=== PATIENT | male | born 1980 | race Two or more races ===

== ENCOUNTER 2019-03-12 19:49 | Emergency (ER) | payer BC ==
--- NOTE | 2019-03-12 21:25 | EDM.PDOC ---
<Thiago Alcazar - Last Filed: 03/12/19 23:33> ED HPI GENERAL MEDICAL PROBLEM - General Chief Complaint: Respiratory Problem Stated Complaint: FLU Time Seen by Provider: 03/12/19 20:15 - Related Data Allergies Allergy/AdvReac Type Severity Reaction Status Date / Time No Known Allergies Allergy Verified 03/12/19 20:25 Home Meds: Home Meds Albuterol Sulfate [Proair Hfa] 8.5 gm IH Q8HR PRN #1 [email or web address].[email or web address].[email or web address] 03/12/19 [Rx] Course - Vital Signs Last Recorded V/S: Last Vital Signs Temp 98.4 F 03/12/19 23:35 Pulse 90 03/12/19 23:35 Resp 18 03/12/19 23:35 BP 130/26 L 03/12/19 23:35 Pulse Ox 98 03/12/19 23:35 - Orders/Labs/Meds Labs: Laboratory Tests 03/12/19 03/12/19 Range/Units 21:50 21:50 WBC 7.15 (4.0-11.0) K/uL RBC 5.05 (4.50-5.90) M/uL Hgb 15.0 (13.0-17.0) g/dL Hct 44.8 (38.0-50.0) % MCV 88.7 (80.0-98.0) fL MCH 29.7 (27.0-32.0) pg MCHC 33.5 (31.0-37.0) g/dL RDW Std Deviation 41.3 (28.0-62.0) fl RDW Coeff of Patti 13 (11.0-15.0) % Plt Count 159 (150-400) K/uL MPV 10.10 (7.40-12.00) fL Neut % (Auto) 67.3 (48.0-80.0) % Lymph % (Auto) 18.2 (16.0-40.0) % Berrien % (Auto) 13.0 (0.0-15.0) % Eos % (Auto) 1.4 (0.0-7.0) % Baso % (Auto) 0.1 (0.0-1.5) % Neut # (Auto) 4.8 (1.4-5.7) K/uL Lymph # (Auto) 1.3 (0.6-2.4) K/uL Berrien # (Auto) 0.9 H (0.0-0.8) K/uL Eos # (Auto) 0.1 (0.0-0.7) K/uL Baso # (Auto) 0.0 (0.0-0.1) K/uL Nucleated RBC % 0.0 /100WBC Nucleated RBCs # 0 K/uL Sodium 138 (136-148) mmol/L Potassium 4.2 (3.5-5.1) mmol/L Chloride 101 (98-107) mmol/L Carbon Dioxide 28.6 (21.0-32.0) mmol/L BUN 15 (7.0-18.0) mg/dL Creatinine 1.1 (0.8-1.3) mg/dL Est Cr Clr Drug Dosing 95.86 mL/min Estimated GFR (MDRD) > 60.0 ml/min Glucose 94 (74-106) mg/dL Calcium 9.0 (8.5-10.1) mg/dL Total Bilirubin 0.2 (0.2-1.0) mg/dL AST 66 H (15-37) IU/L ALT 91 H (14-63) IU/L Alkaline Phosphatase 49 (46-116) U/L Total Protein 7.7 (6.4-8.2) g/dL Albumin 3.7 (3.4-5.0) g/dL Globulin 4.0 (2.6-4.0) g/dL Albumin/Globulin Ratio 0.9 (0.9-1.6) - Re-Assessments/Exams Free Text/Narrative Re-Assessment/Exam: 03/12/19 23:33 Emergency Medicine Physician Handoff Note Verbal report from MEGHNA Johns at 9:00 PM, 05/09/2019. Summary: 38-year-old male presents with cough and wheezing of one week duration. Vitals and completed studies were jointly reviewed, these are notable for: * HR 104, RR 18, BP 130/73, T 37.4C, SaO2 96% on room air. * WBC 7.15, HB 15.0. * CXR: no evidence of acute cardiopulmonary disease. Pending: CMP Anticipated disposition: discharge with Medrol Dosepak and inhaler. Evaluation: I independently reviewed the prior provider's chart, nursing and triage note(s) , vitals - and when available - labs, EKGs, and imaging studies. Sodium 138, potassium 4.2. Repeat evaluation approximately 11:20 PM with patient resting comfortably, repeat history notable for cough and sore throat times one week, otherwise consistent with that given above. Lungs clear to auscultation bilaterally with a normal work of breathing. Disposition: discharge with PCP follow-up recommended. Impression: cough. Departure - Departure Time of Disposition: 23:33 Disposition: Home, Self-Care 01 Clinical Impression: Tracheobronchitis, Transaminitis Upper respiratory infection Qualifiers: URI type: unspecified URI Qualified Code(s): J06.9 - Acute upper respiratory infection, unspecified - Discharge Information Prescriptions: Albuterol Sulfate [Proair Hfa] 8.5 gm IH Q8HR PRN #1 hfa.aer.ad PRN Reason: Cough Instructions: Acute Bronchitis, Adult, Viky-zf-Dpab, Upper Respiratory Infection, Adult, [id number]-Cbbn Referrals: PCP,None [Primary Care Provider] - Forms: ED Department Discharge Additional Instructions: The following information is given to patients seen in the emergency department who are being discharged to home. This information is to outline your options for follow-up care. We provide all patients seen in our emergency department with a follow-up referral. The need for follow-up, as well as the timing and circumstances, are variable depending upon the specifics of your emergency department visit. If you don't have a primary care physician on staff, we will provide you with a referral. We always advise you to contact your personal physician following an emergency department visit to inform them of the circumstance of the visit and for follow-up with them and/or the need for any referrals to a consulting specialist. The emergency department will also refer you to a specialist when appropriate. This referral assures that you have the opportunity for follow-up care with a specialist. All of these measure are taken in an effort to provide you with optimal care, which includes your follow-up. Under all circumstances we always encourage you to contact your private physician who remains a resource for coordinating your care. When calling for follow-up care, please make the office aware that this follow-up is from your recent emergency room visit. If for any reason you are refused follow-up, please contact the [facility] Emergency Department at and asked to speak to the emergency department charge nurse. [facility] Primary Care [address] [place] [address] [facility] [address] [place] [address] 1. Take medication as prescribed. You can alternate ibuprofen and Tylenol as directed for pain and discomfort. 2. Follow-up with your primary care provider as discussed. Return to the ED as needed and as discussed. You were in seen in the [facility] Emergency Department for evaluation of a cough and wheezing. You may take the prescribed steroids and inhaler to reduce your symptoms. Please read and follow all of the instructions below. Please follow up with your primary care physician in 2 days for repeat evaluation. When calling for follow-up care, please make the office aware that this follow-up is from your recent emergency room visit. If for any reason you are refused follow-up, please contact the [facility] Emergency Department at and asked to speak to the emergency department charge nurse. Your care today was limited to identifying and treating emergent medical problems only. Many people have subtle differences in their test results that require follow up with their outpatient physician(s) to correctly determine if this represents a normal variation or concerning abnormality with respect to your specific health. The care given to you today was limited to identifying and treating emergent medical problems - you need to request a copy of all of your medical records from today's visit and follow up with your outpatient physician(s) to review both today's visit and your overall health. If you have any new symptoms or if you are at all concerned about your health please return immediately to the emergency department. Prescriptions: If you are uninsured or have financial difficulties with filling your prescription(s), you may consider using a free pharmacy discount service such as [employer] ([employer]) or [employer] (Is That Odd). These services allow you to search for a medication on your phone (or computer) and obtain a coupon that usually has a significant discount from the list holcomb at a pharmacy. Your physician as well as [facility] does not have a financial relationship with either of these services. You may also wish to speak with your physician to determine if lower cost prescriptions are possible. Obtaining primary care: 1. [facility] provides pediatrics (children), family medicine (children, adults, and some obstetrical care), and internal medicine (adults). Further specialty care is also available. Same day appointments are available. They may be contacted at [phone] and are open Friday through Friday 8 AM to 5 PM. The [facility] are located at [facility], [address] [place] [address]. 2. [facility] offers family medicine, internal medicine, women health, and further specialty care. [facility] may be contacted at [phone]. [facility] is located at [address] [facility] [address]. 3. If you have health insurance, please also contact your insurer for a list of accepting providers under your policy, you may contact these providers for further health care. Occupational health: Work related injuries may consider following up with [facility], . Occupational health services are located at [address] [place] [address] and are open Friday through Friday from 7: 30 am to 5:00 pm. Obstetrical and Gynecological Care: [facility], , Friday through Friday 8 AM to 5 PM. [address] [place] [address]. Eyecare: If you have an eye injury you should follow up with your rate clerk passenger or with [facility], at [phone] or [phone] , they are located at [address] [place] [address]. [facility]. [address] [place] [address]. Ph. [phone] Denadre Colón DDS MS. [address] [facility] [address], [place], [place]. Ph. [phone] Blaine Yogesh Mehta DDS. 10 03/[address] [place] [address]. Ph. [phone] Cristhian Gomez DDS. [address] [facility] [address] [place], [place]. Ph. [phone] [facility] Bobby [facility] PC. [address] [facility] [address] [place], [place]. Ph. [phone] Richar Connors DDS. [address] [facility]. Ph. [phone] [facility]. [address] [place], [place]. Ph. [phone] [facility]. [address] [place] [address], [place], [place]. Ph. [phone] [facility] [address] [place] [address]. Ph. [facility] [address] [place] [address] [address] [place], [place]. Ph. [facility]. [address] , [place], [place]. Ph. [phone] Cough Home Care Instructions You were seen in the emergency department today for evaluation of your cough. Based upon the evaluation today your cough does not appear to be caused by bacterial pneumonia, rather a virus is the cause of your cough. These types of infections cannot be treated by antibiotics, your body will fight this infection and clear the virus. Most people get better in 7-10 days. It is not uncommon to have a mild nonproductive cough last for up to several weeks following the resolution of your illness. If you continue have a cough beyond 7- 10 days please follow-up with your primary care physician. You may do the following treatments to reduce your symptoms: * Hefm-gix-wxlgeqb cough medications containing dextromethorphan may reduce the frequency and severity of your coughing. Please take as directed on the bottle. Please read all warnings on the bottle. Do not take this medication if you have any allergies to any of the ingredients listed on the bottle. * Ibuprofen may be used to reduce fever, pain, and inflammation. You may take 600 mg (three 200 mg ahwc-bct-ibclsdd tablets) every 6-8 hours. Please read the warnings below regarding ibuprofen. Do not take this medication if you are or allergic to ibuprofen, Motrin, Aleve, or naproxen. * Please stay well-hydrated and get adequate rest. * If you are a smoker please stop smoking. * Dsbf-dhp-fqwfcoq lozenges or tea with honey may be used for sore throat. Please return to the emergency department if any of the following occur: * Increasing fever. * Worsening cough or a cough that becomes productive of thick sputum. * A cough that temporarily gets better and then over the several days get significantly worse. This may occur if you developed a bacterial pneumonia following your viral infection. This rarely occurs and there is no prevention at this point in your infection. * Chest pain. * Shortness of breath or difficulty breathing. * If you are otherwise concerned about your health. Albuterol (Brand Name: Salbutamol) This drug is used to open the airways in lung diseases where spasm may cause breathing problems. Please use this medication as prescribed. Please call your doctor if you are needing to use if more frequently than prescribed. Use your inhaler with a spacer every time. This medication may make you feel jittery and have a faster heart rate. If you have diabetes, please check your blood glucose more frequently as it may be higher. ALBUTEROL WARNING/CAUTION: Even though it may be rare, some people may have very bad and sometimes deadly side effects when taking a drug. Tell your doctor or get medical help right away if you have any of the following signs or symptoms that may be related to a very bad side effect: Signs of an allergic reaction, like rash; hives; itching; red, swollen, blistered, or peeling skin with or without fever; wheezing; tightness in the chest or throat; trouble breathing or talking; unusual hoarseness; or swelling of the mouth, face, lips, tongue, or throat. Signs of low potassium levels like muscle pain or weakness, muscle cramps, or a heartbeat that does not feel normal. If you are not able to get the breathing attack under control. Get help right away. Chest pain or pressure or a fast heartbeat. Very nervous and excitable. Very bad headache. Very bad dizziness or passing out. This drug may sometimes cause very bad breathing problems. This may be life- threatening. When this happens with a puffer (inhaler) or with liquid for breathing in, most of the time it happens right after a dose and after the first use of a new canister or vial of this drug. If you have trouble breathing , breathing that is worse, wheezing, or coughing, get medical help right away. ALBUTEROL WARNING/CAUTION: Even though it may be rare, some people may have very bad and sometimes deadly side effects when taking a drug. Tell your doctor or get medical help right away if you have any of the following signs or symptoms that may be related to a very bad side effect: Signs of an allergic reaction, like rash; hives; itching; red, swollen, blistered, or peeling skin with or without fever; wheezing; tightness in the chest or throat; trouble breathing or talking; unusual hoarseness; or swelling of the mouth, face, lips, tongue, or throat. Signs of low potassium levels like muscle pain or weakness, muscle cramps, or a heartbeat that does not feel normal. If you are not able to get the breathing attack under control. Get help right away. Chest pain or pressure or a fast heartbeat. This drug may sometimes cause very bad breathing problems. This may be life- threatening. When this happens with a puffer (inhaler) or with liquid for breathing in, most of the time it happens right after a dose and after the first use of a new canister or vial of this drug. If you have trouble breathing , breathing that is worse, wheezing, or coughing, get medical help right away. Pain when passing urine. Trouble passing urine. A very bad skin reaction (Mcgill-Howard syndrome/toxic epidermal necrolysis) may happen. It can cause very bad health problems that may not go away, and sometimes . Get medical help right away if you have signs like red, swollen , blistered, or peeling skin (with or without fever); red or irritated eyes; or sores in your mouth, throat, nose, or eyes. Sepsis Event Note - Focused Exam Vital Signs: Vital Signs Temp Pulse Resp BP Pulse Ox 03/12/19 23:35 98.4 F 90 18 130/26 L 98 Date Exam was Performed: 03/12/19 Time Exam was Performed: 23:33 <Dodie Johns - Last Filed: 03/13/19 09:59> ED HPI GENERAL MEDICAL PROBLEM - General Source of Information: Reports: Patient History Limitations: Reports: No Limitations - History of Present Illness INITIAL COMMENTS - FREE TEXT/NARRATIVE: HISTORY AND PHYSICAL: History of present illness: Patient is a 38-year-old male who presents to the ED today with concern of cough and nasal congestion over the past 4 days. Patient states he initially had fevers with onset of symptoms but those have resolved. Patient states he does smoke 2 cigarettes a day and is working on quitting. Patient denies any other symptoms or concerns. Patient denies fever, chills, chest pain, shortness of breath. Denies headache, neck stiff ness, change in vision, syncope, or near syncope. Denies nausea, vomiting, abdominal pain, diarrhea, constipation, or dysuria. Has not noted any blood in urine or stool. Patient has been eating and drinking appropriately. Review of systems: As per history of present illness and below otherwise all systems reviewed and negative. Past medical history: As per history of present illness and as reviewed below otherwise noncontributory. Surgical history: As per history of present illness and as reviewed below otherwise noncontributory. Social history: See social history for further information Family history: As per history of present illness and as reviewed below otherwise noncontributory. Physical exam: General: Patient is alert, oriented, and in no acute distress. Patient sitting comfortably on exam table. HEENT: Atraumatic, normocephalic, pupils equal and reactive bilaterally, negative for conjunctival pallor or scleral icterus, mucous membranes moist, TMs normal bilaterally, throat clear, neck supple, nontender, trachea midline. No drooling or trismus noted. No meningeal signs. No hot potato voice noted. Bilateral nasal congestion with clear drainage. Lungs: Mild wheezing to auscultation of lung bases, breath sounds equal bilaterally, chest nontender. Heart: S1S2, regular rate and rhythm without overt murmur Abdomen: Soft, nondistended, nontender. Negative for masses or hepatosplenomegaly. Negative for costovertebral tenderness. Pelvis: Stable nontender. Genitourinary: Deferred. Rectal: Deferred. Skin: Intact, warm, dry. No lesions or rashes noted. Extremities: Atraumatic, negative for cords or calf pain. Neurovascular unremarkable. Neuro: Awake, alert, oriented. Cranial nerves II through XII unremarkable. Cerebellum unremarkable. Motor and sensory unremarkable throughout. Exam nonfocal. Notes: Discussed importance for follow-up with a primary care provider and for repeat labwork/additional follow up with labwork. Voices understanding and is agreeable to plan of care. Denies any further questions or concerns at this time. Diagnostics: CBC, CMP, CXR Therapeutics: None Prescription: Medrol Dosepak, pro-air inhaler Impression: Tracheobronchitis Upper respiratory infection Transaminitis Plan: 1. Take medication as prescribed. You can alternate ibuprofen and Tylenol as directed for pain and discomfort. 2. Follow-up with your primary care provider as discussed. Return to the ED as needed and as discussed. Definitive disposition and diagnosis as appropriate pending reevaluation and review of above. generalized Pain Score (Numeric/FACES): 4 Past Medical History - Past Health History Medical/Surgical History: Denies Medical/Surgical History Social & Family History - Family History Family Medical History: Noncontributory - Tobacco Use Smoking Status *Q: Current Every Day Smoker Years of Tobacco use: 10 Packs/Tins Daily: 0.5 - Recreational Drug Use Recreational Drug Use: No ED ROS GENERAL - Review of Systems Review Of Systems: Comprehensive ROS is negative, except as noted in HPI. ED EXAM, GENERAL - Physical Exam Exam: See Below (see dictation) Course - Orders/Labs/Meds Labs: Laboratory Tests 03/12/19 03/12/19 Range/Units 21:50 21:50 WBC 7.15 (4.0-11.0) K/uL RBC 5.05 (4.50-5.90) M/uL Hgb 15.0 (13.0-17.0) g/dL Hct 44.8 (38.0-50.0) % MCV 88.7 (80.0-98.0) fL MCH 29.7 (27.0-32.0) pg MCHC 33.5 (31.0-37.0) g/dL RDW Std Deviation 41.3 (28.0-62.0) fl RDW Coeff of Patti 13 (11.0-15.0) % Plt Count 159 (150-400) K/uL MPV 10.10 (7.40-12.00) fL Neut % (Auto) 67.3 (48.0-80.0) % Lymph % (Auto) 18.2 (16.0-40.0) % Berrien % (Auto) 13.0 (0.0-15.0) % Eos % (Auto) 1.4 (0.0-7.0) % Baso % (Auto) 0.1 (0.0-1.5) % Neut # (Auto) 4.8 (1.4-5.7) K/uL Lymph # (Auto) 1.3 (0.6-2.4) K/uL Berrien # (Auto) 0.9 H (0.0-0.8) K/uL Eos # (Auto) 0.1 (0.0-0.7) K/uL Baso # (Auto) 0.0 (0.0-0.1) K/uL Nucleated RBC % 0.0 /100WBC Nucleated RBCs # 0 K/uL Sodium 138 (136-148) mmol/L Potassium 4.2 (3.5-5.1) mmol/L Chloride 101 (98-107) mmol/L Carbon Dioxide 28.6 (21.0-32.0) mmol/L BUN 15 (7.0-18.0) mg/dL Creatinine 1.1 (0.8-1.3) mg/dL Est Cr Clr Drug Dosing 95.86 mL/min Estimated GFR (MDRD) > 60.0 ml/min Glucose 94 (74-106) mg/dL Calcium 9.0 (8.5-10.1) mg/dL Total Bilirubin 0.2 (0.2-1.0) mg/dL AST 66 H (15-37) IU/L ALT 91 H (14-63) IU/L Alkaline Phosphatase 49 (46-116) U/L Total Protein 7.7 (6.4-8.2) g/dL Albumin 3.7 (3.4-5.0) g/dL Globulin 4.0 (2.6-4.0) g/dL Albumin/Globulin Ratio 0.9 (0.9-1.6) Sepsis Event Note - Evaluation Sepsis Screening Result: No Definite Risk - Focused Exam Date Exam was Performed: 03/13/19 Time Exam was Performed: 09:58
--- NOTE | 2019-03-12 21:51 | CR ---
INDICATION: cough x3 days 2 View Chest. Findings: The lungs are clear. Pulmonary vascularity, mediastinum and cardiac silhouette are within normal limits. No effusions and no pneumothorax. Osseous structures appear unremarkable. Impression: No evidence of acute cardiopulmonary disease. Dictated by: Jason Tran MD @ 03/12/2019 21:50:06 (Electronically Signed)
[2019-03-12 22:17] LABS: BLOOD UREA NITROGEN,BUN 15 mg/dL (7.0-18.0); CARBON DIOXIDE,CO2 28.6 mmol/L (21.0-32.0); CHLORIDE,CL 101 mmol/L (98-107); GLUCOSE RANDOM 94 mg/dL (74-106); POTASSIUM,K 4.2 mmol/L (3.5-5.1); SODIUM,NA 138 mmol/L (136-148)
== END 2019-03-12 23:35 | disposition home or self-care (01) ==
LOC: MW.ED 19:49
DX: J40 Bronchitis, not specified as acute or chronic (principal); J06.9 Acute upper respiratory infection, unspecified; R74.0 Nonspecific elevation of levels of transaminase and lactic acid dehydrogenase [LDH]; F17.210 Nicotine dependence, cigarettes, uncomplicated
CPT/HCPCS: 36415; 71046; 71046-26; 80053; 85025; 87804; 99283; 99283-25